=== PATIENT | male | born 1980 | race American Indian/Alaskan Native ===

== ENCOUNTER 2019-04-08 11:03 | Emergency (ER) | payer SELFPAY ==
[2019-04-08 11:08] VITALS: BP 162/91
[2019-04-08] MEDS ORDERED: MARCAINE 0.25% INFILTRATI ONE ×2 (11:25→11:30)
--- NOTE | 2019-04-08 12:20 | Emergency Department Report ---
ED Upper Extremity Inj HPI - General Chief Complaint: Extremity Injury, Upper Stated Complaint: CUT LT RING FINGER Time Seen by Provider: 04/08/19 11:14 Source: patient Mode of arrival: Ambulatory Limitations: No Limitations - History of Present Illness Initial Comments: Patient is a 39-year-old male who suffered a laceration to the left fourth digit earlier this morning. Patient was Glass was broken sliced his finger. Patient was able to control bleeding prior to arrival. Patient states his tetanus is up-to-date. - Related Data Allergies Allergy/AdvReac Type Severity Reaction Status Date / Time No Known Allergies Allergy Verified 04/08/19 11:27 ED Review of Systems ROS: Stated complaint: CUT LT RING FINGER Other details as noted in HPI Comment: All other systems reviewed and negative ED Past Medical Hx - Past Medical History Previous Medical History?: No - Surgical History Past Surgical History?: No - Social History Smoking Status: Current Every Day Smoker Substance Use Type: Alcohol, Marijuana ED Physical Exam - General Limitations: No Limitations General appearance: alert, in no apparent distress - Head Head exam: Present: atraumatic, normocephalic - Eye Eye exam: Present: normal appearance - ENT ENT exam: Present: mucous membranes moist - Neck Neck exam: Present: normal inspection - Respiratory Respiratory exam: Present: normal lung sounds bilaterally. Absent: respiratory distress, wheezes, rales, rhonchi - Cardiovascular Cardiovascular Exam: Present: regular rate, normal rhythm. Absent: systolic murmur, diastolic murmur, rubs, gallop - GI/Abdominal GI/Abdominal exam: Present: soft, normal bowel sounds - Rectal Rectal exam: Present: deferred - Extremities Exam Extremities exam: Present: normal inspection - Expanded Upper Extremity Exam Left Hand Wrist exam: Present: full ROM, tenderness, laceration. Absent: swelling, ecchymosis, deformity, crepidus, erythema, amputation, nail avulsion Hand L/R Front: 1 - Positive: laceration (2cm) - Back Exam Back exam: Present: normal inspection - Neurological Exam Neurological exam: Present: alert, oriented X3 - Psychiatric Psychiatric exam: Present: normal affect, normal mood - Skin Skin exam: Present: warm, dry, intact, normal color. Absent: rash ED Course Vital Signs 04/08/19 11:05 Temperature 98.3 F Pulse Rate 100 H Respiratory 20 Rate Blood Pressure 162/91 O2 Sat by Pulse 98 Oximetry - Laceration /Wound Repair Left Volar Finger Wound Location: upper extremity Wound Length (cm): 2 Wound's Depth, Shape: linear Wound Explored: clean Irrigated w/ Saline (ccs): 200 Betadine Prep?: Yes Anesthesia: 0.5% Sensorcaine (dogital block proformed with good anesthesia) Volume Anesthetic (ccs): 10 Wound Repaired With: sutures Suture Size/Type: 5:0, nylon Number of Sutures: 5 Progress: Patient's wedding ring was able to be removed Critical care attestation.: If time is entered above; I have spent that time in minutes in the direct care of this critically ill patient, excluding procedure time. ED Disposition Clinical Impression: Finger laceration Qualifiers: Encounter type: initial encounter Finger: ring finger Damage to nail status: without damage Foreign body presence: without foreign body Laterality: left Qualified Code(s): S61.215A - Laceration without foreign body of left ring finger without damage to nail, initial encounter Disposition: -01 TO HOME OR SELFCARE Is pt being admited?: No Does the pt Need Aspirin: No Condition: Stable Instructions: Suture Care (ED), Laceration (ED) Additional Instructions: Please have sutures removed in one week Referrals: SIOBHAN LEGGETT MD [Referring] - 3-5 Days Time of Disposition: 12:23
== END 2019-04-08 12:43 | disposition home or self-care (01) ==
LOC: ED 11:03
DX: S61.215A Laceration without foreign body of left ring finger without damage to nail, initial encounter (principal); F17.200 Nicotine dependence, unspecified, uncomplicated; F12.10 Cannabis abuse, uncomplicated; W25.XXXA Contact with sharp glass, initial encounter; Y93.89 Activity, other specified; Y92.89 Other specified places as the place of occurrence of the external cause; Y99.8 Other external cause status

== ENCOUNTER 2019-04-14 13:38 | Emergency (ER) | payer OTHER ==
--- NOTE | 2019-04-14 13:45 | Emergency Department Report ---
Suture/Staple Removal - HPI Chief Complaint: Laceration/Recheck/Suture Stated Complaint: STITCHES REMOVAL Time Seen by Provider: 04/14/19 13:43 When Sutures or Adel Placed: 5-7 Days Ago Wound Location: left 4th finger ED Review of Systems ROS: Stated complaint: STITCHES REMOVAL Other details as noted in HPI Constitutional: denies: chills, fever Respiratory: denies: cough, shortness of breath, wheezing Cardiovascular: denies: chest pain, palpitations Gastrointestinal: denies: abdominal pain, nausea, diarrhea Skin: lesions (sutures to left 4th finger). denies: rash Neurological: denies: headache, weakness, paresthesias Psychiatric: denies: anxiety, depression ED Past Medical Hx - Past Medical History Previous Medical History?: No - Surgical History Past Surgical History?: No - Social History Smoking Status: Current Every Day Smoker Substance Use Type: Alcohol Suture Removal Exam - Exam General: Vital signs noted. No distress. Alert and acting appropriately. Wound: No Pathologic Erythema, No Tenderness, No Drainage, No Pus, No Wound Dehiscence Other Systems: All other systems reviewed and are unremarkable. ED Course Vital Signs 04/14/19 13:41 Temperature 97.9 F Pulse Rate 84 Respiratory 18 Rate Blood Pressure 157/87 [Right] O2 Sat by Pulse 99 Oximetry ED Recheck MDM - Differential Diagnosis Wound Recheck, Suture/Staple Removal - Medical Decision Making Patient is stable and was examined by me. Sutures x 4 removed with wire foreceps. Wound cleaned with 6 cc of normal saline and bandaid applied. Instructed to Follow-up with a primary care if symptoms worsen and continue return to emergency room as soon as possible. At time of discharge, the patient does not seem toxic or ill in appearance. No acute signs of distress noted. Patient agrees to discharge treatment plan of care. No further questions noted by the patient. Critical care attestation.: If time is entered above; I have spent that time in minutes in the direct care of this critically ill patient, excluding procedure time. ED Disposition Clinical Impression: Visit for suture removal Disposition: - TO HOME OR SELFCARE Is pt being admited?: No Condition: Stable Instructions: Suture Removal (ED), Acute Wound Care (ED) Additional Instructions: Apply vitamin E or mederma cream to wound daily for 7-10 days to improve scarring. If you notice drainage or swelling from wound follow up with your primary care doctor or return to the ER. Referrals: [facility] [Outside] - 3-5 Days [facility] [Outside] - 3-5 Days [facility] [Outside] - 3-5 Days Time of Disposition: 14:17
[2019-04-14 14:12] VITALS: BP 157/87
== END 2019-04-14 14:19 | disposition home or self-care (01) ==
LOC: ED 13:38
DX: S61.215D Laceration without foreign body of left ring finger without damage to nail, subsequent encounter (principal); F17.200 Nicotine dependence, unspecified, uncomplicated; W26.8XXD Contact with other sharp object(s), not elsewhere classified, subsequent encounter